=== PATIENT | male | born 1960 | race Two or more races ===

== ENCOUNTER → 2020-05-24 | Outpatient (CLI) | payer BC ==
--- NOTE | 2020-05-24 08:45 | KCIC ---
CLINICAL HISTORY: Generalized Abdominal pain x 2 months COMPARISON: None available. TECHNIQUE: Ultrasound of the upper abdomen was performed. FINDINGS: The liver measures 15 cm in length in the right mid clavicular line. The hepatic margin is smooth and the hepatic echogenicity is normal. There are no focal liver lesions. Flow seen within the portal veins. The gallbladder is normal in appearance without evidence for cholelithiasis. There is no wall thickening or pericholecystic fluid. There is no pain with direct transducer pressure over the gallbladder. The common bile duct measures 0.3 cm. The spleen measures 10 centimeters, normal. Pancreas is obscured by overlying bowel gas.. The right kidney measures 11 cm in bipolar length. The left kidney measures 11.1 cm in bipolar length. Normal renal cortical echotexture. No focal renal lesion. No hydronephrosis. Visualized portions of the abdominal aorta and inferior vena cava are unremarkable although the majority is obscured by overlying bowel gas. There is no free fluid in the upper abdomen. IMPRESSION: Essentially normal sonographic survey of the upper abdomen although midline structures, including majority of aorta, IVC and pancreas are obscured by overlying bowel gas. Electronically signed by: Kahlil Hong MD (05/24/2020 8:42 AM) [place] [id number]
== END | disposition home or self-care (01) ==
LOC: KCIC US 07:50
PROVIDERS: ATTEND Family Medicine
DX: R10.84 Generalized abdominal pain (principal)
CPT/HCPCS: 76700

== ENCOUNTER → 2020-06-05 | Outpatient (CLI) | payer BC ==
[~2020-06-05] VITALS: Ht 152.4 cm; Wt 65.8 kg
[~2020-06-05] MED LIST: SINCALIDE 1.32 MCG in IV NORMAL SALINE 50ML 30 ML IV ONE
--- NOTE | 2020-06-05 12:46 | RAD ---
EXAM: Nuclear hepatobiliary scan. HISTORY: Pain. TECHNIQUE: Following intravenous administration of 5.5 mCi Tc 99m Choletec, anterior images of the abdomen were obtained at five minute intervals through one hour. Subsequently, 1.32 mcg Kinevac was administered and additional images to assess gallbladder ejection fraction were obtained. FINDINGS: There is prompt radiotracer uptake by the liver. No focal defect is seen. There is normal excretion into the biliary tree. The gallbladder is visualized within 5 minutes and there is free flow into the duodenum. The gallbladder ejection fraction is 25 percent. IMPRESSION: Decreased gallbladder ejection fraction of 25 percent. Electronically signed by: Ramona Reese MD (06/05/2020 12:43 PM) [id number]
== END | disposition home or self-care (01) ==
LOC: NM 08:53
PROVIDERS: ATTEND Internal Medicine Gastroenterology
DX: R11.0 Nausea (principal); R10.9 Unspecified abdominal pain; R14.0 Abdominal distension (gaseous)
CPT/HCPCS: 78227; A9537; J2805